=== PATIENT | male | born 1990 | race Native Hawaiian/Other Pacific Islander ===

== ENCOUNTER 2020-04-14 09:18 | Outpatient (CLI) | payer BC, OTHER | END 2020-04-14 20:01 | disposition home or self-care (01) | LOC: LAB 09:18 | PROVIDERS: ATTEND Psychiatry & Neurology Psychiatry | DX: Z11.59 Encounter for screening for other viral diseases (principal) | CPT/HCPCS: 87635; G2023; U0003 ==

== ENCOUNTER 2022-02-25 12:59 | Outpatient (CLI) | payer OTHER ==
[2022-02-25 14:02] LABS: PLATELET COUNT 232 K/uL (142-355)
== END 2022-02-25 19:08 | disposition home or self-care (01) ==
LOC: LABW 12:59
PROVIDERS: ATTEND Nurse Practitioner
DX: R53.83 Other fatigue (principal)
CPT/HCPCS: 36415; 80053; 80061; 81002; 83036; 85027